=== PATIENT | male | born 1975 | race Caucasian/White ===

== ENCOUNTER → 2017-11-08 14:54 | Outpatient (CLI) | payer OTHER, SELFPAY ==
--- NOTE | 2017-11-08 | DI.MRI.S_ITS ---
PROCEDURE: MR LUMBAR SPINE WO CON INDICATIONS: LUMBAR SPINE PAIN TECHNIQUE: Noncontrast sagittal T1 spin echo and T2 fast echo, sagittal STIR, axial T1 and T2 fast spin echo through the lumbar spine. In cases with scoliosis, additional coronal T2 fast spin echo may be performed. COMPARISON: [facility], CR, L-SPINE 2-3 VIEWS, 07/22/2017, 8:31. [facility] [place], CR, XR LUMBAR SPINE FLEXION EXTENSION, 06/23/2017, 14:25. [facility], MR, MR LUMBAR SPINE WITHOUT CONTRAST, 06/16/2017, 8:00. FINDINGS: Image quality: Excellent. Alignment and Curvature: There is grade 1 retrrolisthesis of L4 over L5. Bone Marrow: Degenerative endplate signal changes in L4, L5 and S1. No acute vertebral body compression fractures. Spinal Cord: Conus medullaris terminates at the L1 level. Visualized cord demonstrates normal signal and size. Paraspinous Soft Tissues: No paravertebral masses. L1-L2: Normal appearance. L2-L3: Normal appearance. L3-L4: Normal appearance. L4-L5: Moderate loss of disc height and disc desiccation. There is diffuse posterior disc bulge and superimposed posterior central disc protrusion with the protruding disc measuring 6 mm anterior-posterior x 16 mm transverse x 9 mm cephalocaudal. There is mild bilateral facet arthropathy. The central canal is mildly narrowed. Moderate right and mild left foraminal stenosis. Compared to the last exam on 06/23/2017, posterior disc extrusion is slightly increased. L5-S1: Moderate loss of disc height and disc desiccation. There is diffuse posterior disc bulge and disc protrusion. There is mild bilateral facet arthropathy. The central canal is patent. Moderate left and mild right foraminal stenosis. Compared to the last exam on 06/23/2017, posterior disc protrusion is minimally changed. IMPRESSION: 1. Degenerative disc and facet disease in lower lumbar spine. 2. Residual or recurrent posterior disc protrusion at L4-L5 causing mild central canal stenosis. 3. Residual or recurrent posterior disc protrusion at L5-S1. No central canal stenosis. 4. Foraminal stenoses at L4-L5 and L5-S1 as described. Dictated by: Antonia Thomas M.D. on 11/08/2017 at 16:38 Approved by: Antonia Thomas M.D. on 11/08/2017 at 16:53
== END ==
PROVIDERS: Family Provider Radiology Diagnostic Radiology; PCP Radiology Diagnostic Radiology; Visit Provider Physician Assistant Surgical
DX: M51.36 Other intervertebral disc degeneration, lumbar region (principal); M48.061 Spinal stenosis, lumbar region without neurogenic claudication
CPT/HCPCS: 72148

== ENCOUNTER 2018-01-05 05:57 | Inpatient (IN) | payer OTHER, SELFPAY ==
[2017-12-14 09:59] VITALS: BMI 26.2
[2018-01-05] VITALS (18 sets, daily range): BP systolic 107–146; BP diastolic 69–97; PULSE 73–126; RESP 13–20; TEMP 36.1–36.9; O2SAT 92–99; BMI 26.5
[2018-01-05] MEDS: LACTATED RINGERS 1,000 ML 42 ML IV ×2 (07:17→11:17)
--- NOTE | 2018-01-05 07:59 | PM.PREOP ---
Pre-operative Note Interval Note Pre-op Check: Yes History & Physical Reviewed by Physician, Yes Exam Performed and Yes History & Physical exam performed today by Physician Changes: No
[2018-01-05] MEDS: CEFAZOLIN 2 GM/100 ML FROZ.PIGGY IV ×2 (08:07→18:07)
--- NOTE | 2018-01-05 09:04 | SUR.OPER ---
Prone on spine table, head in foam head support, padded chest and pelvic supports, gel pad at knees, lower legs supported by pillows; nipples, genitalia and toes free of pressure, arms secured on foam padded arm boards at <90 degrees abduction. Tape over blanket at thigh secured to table.
[2018-01-05] MEDS: BUPIVACAINE 0.25% W/ EPI VIAL 30 ML INJ (09:28)
[2018-01-05] MEDS: BUPIVACAINE LIPOSOME 266 MG/20 ML VIAL INJ (09:29)
[2018-01-05] MEDS: ACETAMINOPHEN IV 1,000 MG/100 ML VIAL 400 MG IV (10:26)
--- NOTE | 2018-01-05 11:14 | P.OP_ITS ---
Operative Date/Time/Diagnoses Date of procedure: 01/05/18 Time of procedure: 08:10 Pre-op diagnosis: 1. L4-5 hx of microdiscectomy with scarring 2. L4-5, L5-S1 spinal stenosis. 3. L4-5, L5-S1 spondylosis with radiculopathy Post-op diagnosis: same Procedure & Clinicians Procedure: 1. L4-5, L5-S1 Postero-lateral and posterior interbody fusion 2. L4-5, L5-S1 interbody cage placement. 3. L4-5, L5-S1 decompressive laminectomy with bilateral facetecomies 4. L4-5, L5-S1 Posterior segmental instrumentation 5. Paoli of bone marrow from iliac crest 6. Utilization of microsurgical technique and operating microscope Same procedure as scheduled: Yes Indications: Patient has been having chronic back pain and worsening lumbar radiculopathy. Patient failed multiple conservative management with worsening pain weakness and numbness in her lower extremity. Patient has been having difficulty performing activity of daily living. After discussing risks benefits of treatment options, patient elected proceed with surgery. Surgeon: Patricia Sy Senior Business Architect: Ida Myers Click Yes if Unassisted: No Anesthesia Type: General and Local Operative Notes Closure Type: primary Specimen(s): none sent Implants & Drains: Globus revolve screws, Rise cages Applied: catheter Estimated Blood Loss (mL): 100 Blood products transfused: none Procedure in detail: Patient was seen in the preoperative area. Risks and benefits of the surgery was discussed with the patient. Informed consent was obtained from the patient and placed in the chart. Surgical site was marked. Patient was taken to the operative room. General anesthesia was administered. Prophylactic antibiotic was given to the patient less than 30 min before the incision was made. Patient was placed into a prone position on the Williams table. Patient's back was then prepped and draped in the sterile fashion. Time- out was performed at this time. Using AP and lateral C-arm imaging the interval between L4-S1 was identified and marked on patient's back. A 2 inch incision 2 in from midline was made on the right side first. The fascia was incised in line with skin incision. Globus MARS retractors was placed inside the incision and docked onto the L4 and L5 lamina. Using microsurgical technique and operating microscope, a L4 and L5 laminectomy and L4-5 L5-S1 facetectomy was performed using a Kerrison rongeur. The disc space at L4-5, L5-S1 was identified. And a total diskectomy was performed at L4-5, L5-S1 level. The endplates were decorticated using a rasp and shaver. The total diskectomy and decortication was performed at L4-5, L5-S1 level in order to to accomplish a L4-5, L5-S1 fusion. The local bone from the laminectomy and facetectomy was saved for local bone grafting. After the total diskectomy and decortication was completed, Globus viacell bone graft material was combined with local bone that was harvested earlier. At this time , a separate skin is incision was made over the iliac crest. A Jamshidi needle was inserted into the iliac crest through a separate skin incision. 5 cc of bone marrow aspiration was obtained through the separate skin incision using a Jamshidi needle from the iliac crest. The bone marrow aspiration was combined with local bone and the via cell bone grafting material. The bone grafting material was placed into the L4-5, L5-S1 interbody space along with two cages, one expandable cage at each level. The cages were expanded to their maximum height using the torque limiting screwdriver. At this time a mirror image incision was made on the left side. The fascia was incised in line with the skin incision. Globus MARS retractor was inserted and docked onto the L4-5, L5-S1 posterolateral gutter. Using the power drill, posterior-lateral decortication was performed at L4-5, L5-S1 level until bleeding cortical bone was identified. The remaining bone grafting material was placed into the L4-5 L5-S1 posterior lateral gutter he order to accomplish posterolateral fusion at the L4-5 L5-S1 levels. Using the double C-arm technique, pedicle screws were placed into the L4, L5, S1 pedicles bilaterally. This was done by placing the Jamshidi needle into the pedicles, then placing the guidewires over the Jamshidi needle, and finally placing the cannulated screws over the guidewires bilaterally. After the pedicle screws were placed, 2 titanium rods was locked into the heads of the pedicle screws using locking caps and torque limiting screwdriver. Total 6 pedicles screws were placed. After all the hardware was placed, and confirmed with AP and lateral C-arm imaging, the wound was then irrigated with sterile normal saline and packed with Ray-Jad gauze for 3 min to accomplish hemostasis. After the gauze was removed the deep fascia was closed with #1 Vicryl suture. The subcutaneous layer was closed with 2-0 Vicryl. The skin was closed with skin gertrude. Patient tolerated the procedure well. There were no complications. Complications: none Condition: stable Disposition: Acute Care Plan for aftercare: Admit to inpatient hospital
[2018-01-05] MEDS: fentaNYL 100 MCG/2 ML INJ 50 MCG IV ×4 (11:25→12:19)
[2018-01-05] MEDS: HYDROMORPHONE 2 MG INJ 0.5 MG IV ×8 (11:35→12:10)
[2018-01-05] MEDS: LORazepam 2 MG/ML SYRINGE 0.25 MG IV ×2 (11:37→11:53)
--- NOTE | 2018-01-05 12:24 | DI.RAD.S_ITS ---
PROCEDURE: XR LUMBAR SPINE 2-3V INDICATIONS: L4-5, L5-S1 TLIF TECHNIQUE: 2 views of the lumbar spine were acquired. COMPARISON: [facility], , L-SPINE 2-3 VIEWS, 07/22/2017, 8:31. FINDINGS: Intraoperative images demonstrating localizer along the posterior aspect of L5. Posterior fusion with intervertebral spacers from L4-S1 is noted. There is questionable trace retrolisthesis of L4 on L5. IMPRESSION: Intraoperative images as above. Dictated by: Keily Guzman M.D. on 01/05/2018 at 12:32 Approved by: Keily Guzman M.D. on 01/05/2018 at 12:33
[2018-01-05] MEDS: SODIUM CHLORIDE 0.9% 1,000 ML 100 ML IV (13:12)
--- NOTE | 2018-01-05 13:15 | CM.IDA ---
Addendum entered by ALEXX Lopez 01/06/18 15:21: Met w/pt this morning. He explained he had a rough night, he did not sleep, and he was eager to get home. Pt's available to assist, father in law also available (lives with them). Pt has two children, a 9 and 13 yo and they can help with some tasks. Pt requests information about a product a friend of his owned; an ice pack w/circulating cold water that makes it so ice does not need to be changed as often. Provided pt w/information on [employer] in [place] (they can deliver). This product costs approx $200-300, there is a rental option, and [employer] w/this ORTHOTICS PROSTHETICS TECHNICIAN stating [employer] would likely not cover this DME. Also attempted [facility] in [place] had to LM. Home w/family is expected upon DC, likely no barriers. ERIN Original Note: DCP Assessment Note: Pt is a 42 yo male, resident of [place]. Pt admitted for spinal surgery with Dr Sy. Pt's PCP is James Randle; Insurance is [employer]. Attempted DCP Assessment and pt had not returned to the floor from the OR . Following closely. ALEXX Lopez Discharge Planning/Care Management CM Discharge Assessment Start: 01/05/18 13:07 Freq: Status: Active Protocol: Document 01/05/18 13:09 ERIN (Rec: 01/05/18 13:15 ERIN [id number]) Discharge Planning Assessment Assigned Maintenance Advisor ALEXX Sam DPOA/Assigned Designee Name shasta Mcnulty Contact Information [phone] Advance Directives? Yes Advance Directives on File No Prior Living Arrangements House Household Members spouse children Type of transporation used prior to Drives own vehicle admit Independent with ADL's Yes Is patient alert and oriented? Yes Barriers to Discharge No Comment Likely not but will require DCP assessment when on the floor Discharge Plan Home Transportation Arrangement Family Referrals Initiated None needed Additional Comment Awaiting pt's return to floor from OR Whiteboard Updated in Patient Room with Yes name and ext. # of Maintenance Advisor Review Status In Process
[2018-01-05] MEDS: MAG HYDROX/ALUM/SIMETH 30 ML UDC PO (14:54)
--- NOTE | 2018-01-05 15:30 | PT.IIE ---
Current Diagnoses Spinal stenosis, lumbar region without neurogenic claudication (01/05/18) Intervertebral disc disorders with radiculopathy, lumbar region (01/05/18) Other specified postprocedural states (01/05/18) Surgery Performed Operation Date: 01/05/18 07:45 Actual Procedures p L4-5,L5-S1 TLIF with Posterior Instrumentation - Patricia Sy MD Surgical History (Last Updated 12/14/17 @ 10:24 by Denise Dietz RN) History of appendectomy (Acute ~2000) History of lumbar laminectomy (Acute) Medical History (Last Updated 12/12/17 @ 09:53 by Cindy Dsouza RN) Allergic rhinitis (Acute) Ankle pain (Acute) Astigmatism (Acute) Bursitis (Acute) Degeneration of lumbar intervertebral disc (Acute) Diplopia (Acute) Gastroenteritis (Acute) Hamstring sprain (Acute) Hip pain (Acute) History of pneumonia (Acute) Hyperglycemia (Acute) Hyperlipoproteinemia (Acute) Left knee pain (Acute) Low back pain (Acute) Lumbar disc herniation with radiculopathy (Acute) Myopia (Acute) Paronychia (Acute) Spasm of accommodation (Acute) Spinal stenosis of lumbar region at multiple levels (Acute) [place] teeth extracted (Acute) Physical Therapy Inpatient Evaluation/Re-Eval M1 PT/OT-IP Prior Functional Status Start: 01/05/18 16:05 Freq: Status: Active Protocol: Document 01/05/18 15:30 RCC (Rec: 01/05/18 16:12 RCC [email or web address]) Medical Review Prior Functional Status Medical History Reviewed Yes Diet/Fluid Consistency Regular Communication WNL Mobility and Gait indep. community ambulator without device Social History Household Members spouse children Living Arrangements House Number of Floors (Floors) Two Floors Number of Stairs To Enter/Railing? 2 SE no rails, can stay on main level Home Environment Walk in Shower M2 PT-IP Current Condition Start: 01/05/18 16:05 Freq: Status: Active Protocol: Document 01/05/18 15:30 RCC (Rec: 01/05/18 16:12 RCC [email or web address]) Physical Therapy Current Condition Current Condition Evaluation Date 01/05/18 Treatment Diagnosis L4-S1 lami/fusion, impaired mobility Onset Date 01/05/18 Precautions Lumbar Precautions Log Roll No Twisting Limit Bending Lifting Restriction of 10 lbs Gait Belt above Incisional Area M3 PT-IP Subjective Start: 01/05/18 16:05 Freq: Status: Active Protocol: Document 01/05/18 15:30 RCC (Rec: 01/05/18 16:12 RCC [email or web address]) Subjective Physical Therapy Visit Type Type Initial Evaluation Visit Start Time 14:55 Visit Stop Time 15:30 Total Visit Minutes 35 Number of BURRING WHEEL OPERATOR Visits 0 Physical Therapy Visit Comments Patient Comments pt willing to get OOB. Patient Goals walk, go home Therapy Pain Assessment Pain Present Pain Present Pain Reported Location Lower Back Intensity 6 Scale Used Numeric (1 - 10) M4 PT-IP Mobility and Gait Start: 01/05/18 16:05 Freq: Status: Active Protocol: Document 01/05/18 15:30 RCC (Rec: 01/05/18 16:12 RCC [email or web address]) PT-Bed Mobility Assessment Rolling Type of Rolling Log Rolling Level of Assist Moderate Assistance 1 Person Assistance Supine to Sit Supine to Sit Moderate Assistance 1 Person Assistance Sit to Supine Sit to Supine Moderate Assistance 1 Person Assistance Scooting Scooting to Edge of Bed Contact Guard Assistance PT-Transfer Assessment Sit to and From Stand Sit to and from Stand Contact Guard Assistance 1 Person Assistance Use of Upper Extremities Equipment Transfer Assistive Device Gait Belt Front Wheeled Walker Transfers Transfer Destination Bed Transfer Technique Stand Step Pivot Transfer Ability Level of Assist Contact Guard Assistance Comments Mobility Comments RLE ER and decreased foot clearance Gait Assessment Gait Gait Assistance Required: Contact Guard Assist Distance (Feet) 15 Assistive Devices Assistive Device Gait Belt Front Wheeled Walker Gait Deviations General Gait Pattern Antalgic Decreased Stride Length Decreased Feet Clearance Wide Based Gait Factors Limiting Gait Function Factors Limiting Gait Function Decreased Activity Tolerance Decreased Strength Pain PT-Balance Assessment Sitting Balance and Reactions Static Sitting Balance Ability Good Dynamic Sitting Balance Ability Good Standing Balance and Reactions Static Standing Balance Ability Fair Dynamic Standing Balance Ability Fair Device Used FWW M5 PT-IP Objective Assessments Start: 01/05/18 16:05 Freq: Status: Active Protocol: Document 01/05/18 15:30 RCC (Rec: 01/05/18 16:12 RCC [email or web address]) Orientation Orientation/Cognition Level of Alertness Alert Orientation Name Age Birthday Month Date Year Day of Week Place Situation Gross Range of Motion Lower Extremity ROM Assessment Within Functional Limits Strength Comments Strength Comments LE strength not tested but grossly at least 3+/5 Sensation Assessment Sensation Gross Sensation WNL M6 PT-IP Treatment Start: 01/05/18 16:05 Freq: Status: Active Protocol: Document 01/05/18 15:30 RCC (Rec: 01/05/18 16:12 RCC [email or web address]) Physical Therapy Treatment Education Education Provided Precautions Post-Op Packet Safety Other Treatments Other Treatment Performed BP 145/97 after treatment M7 PT-IP Assessment and Plan Start: 01/05/18 16:05 Freq: Status: Active Protocol: Document 01/05/18 15:30 RCC (Rec: 01/05/18 16:12 RCC [email or web address]) PT Summary Assessment and Plan Potential Rehabilitation Potential Good Status of Condition at Evaluation Stable Summary Impairments Pain Strength Bed Mobility Transfers Gait Activity Tolerance Assessment Summary Same day post-op, pt with less pain after mobility compared to before. His pain is most limiting factor at this point. Expect that if pt is able to have improved pain control, he likely will be able to d/c home when medically stable. Likely will need FWW upon d/c. can support him part of day, but they do have kids to take care of as well. Goals Bed Mobility Goal Independent Transfer Goal Independent Gait Goal Independent Gait Distance 150 Other Goals up/down 2 steps no rails and CGA Days to Meet Goals 2 Frequency of Treatment Frequency Of Treatment Twice a Day Treatment Plan Physical Therapy Treatment Plan Bed Mobility Training Transfer Training Gait Training Therapeutic Exercise Post Op Education Hot or Cold Pack Neuromuscular Re-ed Recommendations To Nursing Amount of Assist Needed 1 Person Assist Discharge Recommendations PT Discharge Recommendations Home with Assistance Equipment Needed for Home Before FWW Discharge
[2018-01-05] MEDS: ACETAMINOPHEN 325 MG TABLET 650 MG PO (19:37)
[2018-01-05] MEDS: OXYCODONE IR 5 MG TABLET 10 MG PO ×2 (19:39→22:54)
[2018-01-05] MEDS: HYDROMORPHONE 1 MG INJ 0.5 MG IV (20:35)
--- NOTE | 2018-01-05 23:54 | PC.NURSE ---
SHIFT NOTE Received pt sleeping but verbally arousable. per report from previous shift, pt would frequently fall asleep and desat despite o2 via NC. pt on verbal agreement to have pain medications withheld until he is more awake and o2 saturations WNL while sleeping (per pt's , pt has possible undiagnosed LESLY). RT at bedside to assist with IS exercises. back dressing 80-90% saturated with bloody drainage, notified Dr. Sy's PA who was in the surgical unit with him, bleeding was expected and to reinforce dressing at this time. Nursing staff to call on-call MD if bleeding persists. best intact, pt tolerating regular consistency food. pt's more awake/alert and much better saturations later in the shift but pt states 9-10/10 pain to back area despite ice packs and frequent repositioning. Administered PRN tylenol and oxycodone which pt states ineffective. Administered PRN IV dilaudid which pt states was ineffective as well. pt agreeable to be on Q3H PO pain medication schedule. academic hospitalist RN updated on plan. call light within reach.
[2018-01-06] VITALS (7 sets, daily range): BP systolic 113–124; BP diastolic 70–99; PULSE 62–83; RESP 16–18; TEMP 36.3–36.8; O2SAT 94–99
[2018-01-06] MEDS: SODIUM CHLORIDE 0.9% 1,000 ML 100 ML IV (00:42)
--- NOTE | 2018-01-06 01:06 | PC.NURSE ---
Addendum entered by Amparo Oshea R.N. 01/06/18 06:13: Sats dropping down to 87% without oxygen on so restarted at 0.5L/min and now sat at 98% Original Note: Addendum entered by Amparo Oshea R.N. 01/06/18 06:06: States pain is hanging out at same 5/10 level and just feels more groggy after taking the Valium. Declined offer of any other pain med at this time. Lab here to draw blood. O2 removed and will continue to monitor for any decline in O2 sat Original Note: Addendum entered by Amparo Oshea R.N. 01/06/18 05:55: O2 sats have been staying in mid to upper 90's on 1L oxygen so decreased to 0.5L/min and will continue to monitor on continuous oximetry. Medicated at 0527 with Valium. Continues to decline repositioning due to pain. Original Note: Addendum entered by Amparo Oshea R.N. 01/06/18 05:09: States pain is better, but still rates severity as 5/10; requests repeat on Valium was he is able to have it again. Original Note: Addendum entered by Amparo Oshea R.N. 01/06/18 04:03: States he was able to get some sleep and pain is still hurts, but it's better than before. Rates current severity as 5/10. Medicated with Oxycodone ordered for 7-10 pain because has no pain meds ordered for 5/10 pain and was previously receiving Oxycodone. Original Note: Patient is alert and oriented with flat affect likely related to uncontrolled pain. Breath sounds CTA with sat of 99% on 1.5L/min oxygen so decreased O2 to 1L/min and will continue to monitor on continuous oximetry. HRR. Denies nausea. BT present and is passing flatus. Indwelling catheter is patent with clear yellow urine noted. Dressing to back reinforced on evenings and now with sanguinous drainage showing but no leakage; outlined for monitoring. Is able to turn self in bed but prefers to be on back as is less painful. Despite pain medications, patient continues to state pain is uncontrolled at 9/[address] Sy contacted and new pain meds ordered. CMS intact. Wearing bilateral footie SCD's. Fall risk score is medium; bed alarm is currently activated.
[2018-01-06] MEDS: OXYCODONE ER 10 MG TAB PO ×3 (01:20→20:21)
[2018-01-06] MEDS: HYDROMORPHONE 1 MG INJ 0.5 MG IV (01:20)
[2018-01-06] MEDS: diazePAM 5 MG TABLET PO ×5 (01:20→22:40)
[2018-01-06] MEDS: CEFAZOLIN 2 GM/100 ML FROZ.PIGGY IV (02:13)
[2018-01-06] MEDS: OXYCODONE IR 5 MG TABLET 10 MG PO ×6 (04:00→21:56)
[2018-01-06 06:49] LABS: Hematocrit 37.2 % (41-53); Hemoglobin 12.8 g/dL (13.5-17.5)
[2018-01-06] MEDS: MAG HYDROX/ALUM/SIMETH 30 ML UDC PO (07:51)
[2018-01-06] MEDS: DOCUSATE 100 MG CAPSULE PO ×2 (07:53→20:21)
[2018-01-06] MEDS: ACETAMINOPHEN 325 MG TABLET 650 MG PO ×2 (07:53→15:43)
--- NOTE | 2018-01-06 08:44 | P.PN_ITS ---
Subjective Date Patient Seen: 01/06/18 Time Patient Seen: 08:40 Interval history: Patient is postop day 1 status post lumbar fusion by Dr. Sy. Patient was having a lot of pain last and could not get comfortable. OxyContin 10 mg p.o. b.i.d. was ordered. He is also receiving oxycodone 10 mg q.3h as needed and Dilaudid 0.5mg Q2HR prn which he received this morning. Pain is now about 5/10 versus 9/10 last night. Eating and drinking well. No complaints of chest pain or shortness of breath. No complaints of any numbness or tingling down leg. Exam Vital Signs (past 8 hours): - 01/06/18 05:10 01/06/18 08:11 Temperature 97.8 F 97.7 F Pulse Rate 75 80 Respiratory Rate 17 16 Blood Pressure 124/81 113/78 Pulse Oximetry 99 99 Fraction of Inspired Oxygen 26 Oxygen Delivery Method Room Air Oxygen Flow Rate 2 Narrative Exam Narrative: Patient in bed. Alert and orient x3. Morrison in. Back dressing has been reinforce with an ABD but has soaked through on one side with blood. 5 /5 BLE strength. Neurovascular status intact. Objective Labs Result Diagrams: 01/06/18 06:05 Labs: Laboratory Results - last 24 hr 01/06/18 06:05 Hgb 12.8 L Hct 37.2 L Assessment & Plan Post-op Postoperative Procedures Operation Date: 01/05/18 07:45 Actual Procedures Side Surgeon p L4-5,L5-S1 TLIF with Posterior Instrumentation Patricia Sy MD Postop day 1. Steroids ordered to help with pain control. The patient ambulate with physical therapy today. MAYE Morrison 1 more mobile. Continue current pain medication. Possible discharge home in a couple of days.
[2018-01-06] MEDS: DEXAMETHASONE 10 MG/ML VIAL IV (10:00)
--- NOTE | 2018-01-06 10:55 | PT.IPTN ---
Current Diagnoses Spinal stenosis, lumbar region without neurogenic claudication (01/05/18) Intervertebral disc disorders with radiculopathy, lumbar region (01/05/18) Other specified postprocedural states (01/05/18) Surgery Performed Operation Date: 01/05/18 07:45 Actual Procedures p L4-5,L5-S1 TLIF with Posterior Instrumentation - Patricia Sy MD Physical Therapy Treatment Note M2 PT-IP Current Condition Start: 01/05/18 16:05 Freq: Status: Active Protocol: Document 01/05/18 15:30 [facility] (Rec: 01/05/18 16:12 [facility] [email or web address]) Physical Therapy Current Condition Current Condition Evaluation Date 01/05/18 Treatment Diagnosis L4-S1 lami/fusion, impaired mobility Onset Date 01/05/18 Precautions Lumbar Precautions Log Roll No Twisting Limit Bending Lifting Restriction of 10 lbs Gait Belt above Incisional Area M3 PT-IP Subjective Start: 01/05/18 16:05 Freq: Status: Active Protocol: Document 01/06/18 10:55 GGD (Rec: 01/06/18 12:22 GGD [id number]) Subjective Physical Therapy Visit Type Type Treatment Note Visit Start Time 10:25 Visit Stop Time 10:55 Total Visit Minutes 30 Number of FISH HATCHERY ASSISTANT Visits 1 Physical Therapy Visit Comments Patient Comments Pt wants to get up and move. Therapy Pain Assessment Pain When Pain Assessed At Rest Pain Present Pain Present Pain Reported Location Lower Back Intensity 3 Scale Used Numeric (1 - 10) M4 PT-IP Mobility and Gait Start: 01/05/18 16:05 Freq: Status: Active Protocol: Document 01/06/18 10:55 GGD (Rec: 01/06/18 12:22 GGD [id number]) PT-Bed Mobility Assessment Rolling Type of Rolling Log Rolling Level of Assist Contact Guard Assistance 1 Person Assistance Supine to Sit Supine to Sit Minimal Assistance 1 Person Assistance Bedrails Sit to Supine Sit to Supine Contact Guard Assistance 1 Person Assistance Bedrails Scooting Scooting to Edge of Bed Standby Assistance PT-Transfer Assessment Sit to and From Stand Sit to and from Stand Contact Guard Assistance 1 Person Assistance Use of Upper Extremities Equipment Transfer Assistive Device Gait Belt Front Wheeled Walker Transfers Transfer Destination Bed Gait Assessment Gait Gait Assistance Required: Contact Guard Assist Distance (Feet) 120 Assistive Devices Assistive Device Gait Belt Front Wheeled Walker Gait Deviations General Gait Pattern Antalgic Decreased Stride Length Decreased Feet Clearance Wide Based Gait Factors Limiting Gait Function Factors Limiting Gait Function Decreased Activity Tolerance Decreased Strength Pain Stair Climbing Assessment Evaluation Level of Assist On Stairs Contact Guard Assistance Minimal Assistance Devices Stair Climbing Assistive Devices Front Wheel Walker Technique/Endurance Stair Climbing Direction Ascend and Descend Stair Climbing Technique Step to Step Number of Steps Climbed 1 Query Text: Stair Climbing Set # Repetitions (reps) 1 Comments Stair Climbing Comments Ascend forward, descend backwards, Pt unable hip hinge to reach walker for forward descend. M5 PT-IP Objective Assessments Start: 01/05/18 16:05 Freq: Status: Active Protocol: Document 01/05/18 15:30 [facility] (Rec: 01/05/18 16:12 [facility] [email or web address]) Orientation Orientation/Cognition Level of Alertness Alert Orientation Name Age Birthday Month Date Year Day of Week Place Situation Gross Range of Motion Lower Extremity ROM Assessment Within Functional Limits Strength Comments Strength Comments LE strength not tested but grossly at least 3+/5 Sensation Assessment Sensation Gross Sensation WNL M6 PT-IP Treatment Start: 01/05/18 16:05 Freq: Status: Active Protocol: Document 01/06/18 10:55 GGD (Rec: 01/06/18 12:22 GGD [id number]) Physical Therapy Treatment Education Education Provided Precautions Safety M7 PT-IP Assessment and Plan Start: 01/05/18 16:05 Freq: Status: Active Protocol: Document 01/06/18 10:55 GGD (Rec: 01/06/18 12:22 GGD [id number]) PT Summary Assessment and Plan Summary Assessment Summary Pt improving with mobility, but having pain with all activity. He has increase in shoulder gaurding and heavy use of UE with gait. He not able to hip hinge for good sit <> stand and stair mobility techinque. Frequency of Treatment Frequency Of Treatment Twice a Day Treatment Plan Physical Therapy Treatment Plan Bed Mobility Training Transfer Training Gait Training Therapeutic Exercise Post Op Education Hot or Cold Pack Neuromuscular Re-ed Recommendations To Nursing Amount of Assist Needed 1 Person Assist Discharge Recommendations PT Discharge Recommendations Home with Assistance
[2018-01-06] MEDS: DEXAMETHASONE 4 MG/ML VIAL IV ×2 (13:24→19:05)
--- NOTE | 2018-01-06 14:51 | OT.IP.EVAL ---
Current Diagnoses Spinal stenosis, lumbar region without neurogenic claudication (01/05/18) Intervertebral disc disorders with radiculopathy, lumbar region (01/05/18) Other specified postprocedural states (01/05/18) Surgery Performed Operation Date: 01/05/18 07:45 Actual Procedures p L4-5,L5-S1 TLIF with Posterior Instrumentation - Patricia Sy MD Past Medical History (Last Updated 12/12/17 @ 09:53 by Cindy Dsouza RN) Allergic rhinitis (Acute) Ankle pain (Acute) Astigmatism (Acute) Bursitis (Acute) Degeneration of lumbar intervertebral disc (Acute) Diplopia (Acute) Gastroenteritis (Acute) Hamstring sprain (Acute) Hip pain (Acute) History of pneumonia (Acute) Hyperglycemia (Acute) Hyperlipoproteinemia (Acute) Left knee pain (Acute) Low back pain (Acute) Lumbar disc herniation with radiculopathy (Acute) Myopia (Acute) Paronychia (Acute) Spasm of accommodation (Acute) Spinal stenosis of lumbar region at multiple levels (Acute) [place] teeth extracted (Acute) Surgical History (Last Updated 12/14/17 @ 10:24 by Denise Dietz RN) History of appendectomy (Acute ~2000) History of lumbar laminectomy (Acute) Occupational Therapy Inpatient Evaluation/Re-Eval M1 PT/OT-IP Prior Functional Status Start: 01/05/18 16:05 Freq: Status: Active Protocol: Document 01/05/18 15:30 [facility] (Rec: 01/05/18 16:12 [facility] [email or web address]) Medical Review Prior Functional Status Medical History Reviewed Yes Diet/Fluid Consistency Regular Communication WNL Mobility and Gait indep. community ambulator without device Social History Household Members spouse children Living Arrangements House Number of Floors (Floors) Two Floors Number of Stairs To Enter/Railing? 2 SE no rails, can stay on main level Home Environment Walk in Shower M1 PT/OT-IP Prior Functional Status Start: 01/06/18 14:34 Freq: NEEDED Status: Active Protocol: Document 01/06/18 14:00 [facility] (Rec: 01/06/18 14:51 [facility] [id number]) Medical Review Prior Functional Status Medical History Reviewed Yes Diet/Fluid Consistency Regular Communication WNL Mobility and Gait indep. community ambulator without device Social History Household Members spouse children Living Arrangements House Number of Floors (Floors) Two Floors Number of Stairs To Enter/Railing? 2 SE no rails, can stay on main level Home Environment Walk in Shower M2 OT-IP Current Condition Start: 01/06/18 14:34 Freq: Status: Active Protocol: Document 01/06/18 14:00 [facility] (Rec: 01/06/18 14:51 [facility] [id number]) Occupational Therapy Current Condition Current Condition Evaluation Date 01/06/18 Treatment Diagnosis Spinal stenosis Diagnosis Onset Date 01/05/18 Post Operative Precautions Lumbar Precautions Log Roll No Twisting Limit Bending Lifting Restriction of 10 lbs Gait Belt above Incisional Area M3 OT- IP Subjective and Pain Start: 01/06/18 14:34 Freq: Status: Active Protocol: Document 01/06/18 14:00 [facility] (Rec: 01/06/18 14:51 [facility] [id number]) OT- Subjective Occupational Therapy Visit Type Type Initial Evaluation Visit Start Time 13:38 Visit Stop Time 14:01 Total Visit Minutes 23 Occupational Therapy Visit Comments Patient Comments Pt agreeable to get up for Ot eval. OT Pain Assessment Pain When Pain Assessed At Rest Pain Present Pain Present Denied Pain M4 OT- IP ADL's Start: 01/06/18 14:34 Freq: Status: Active Protocol: Document 01/06/18 14:00 [facility] (Rec: 01/06/18 14:51 [facility] [id number]) OT ADL-Dressing General Eval Lower Body Dressing Ability Standby Assistance Areas Needing Assistance Retrieving/Set-up of Clothing Comments OT Dressing Comments Pt able to emmett/doff socks by crossing legs over comfortable and prefers that over using sock aid. Pt issued long handled sponge and field spec. OT ADL-Toileting Comments OT Toileting Comments Pt states has to sit to urinate and to take urinal home as gets up occasionally. OT ADL-Bathing Comments OT Bathing Comments Pt states shower too small for shower chair and prefers to stand and that to assist. Pt states will just shower at home. M6 OT- IP Functional Cognition Start: 01/06/18 14:34 Freq: Status: Active Protocol: Document 01/06/18 14:00 [facility] (Rec: 01/06/18 14:51 [facility] [id number]) Cognitive Factors Limiting Selfcare Function Cognitive Ability Level of Alertness Alert Patient Orientation Name Age Birthday Month Date Year Day of Week Place Situation Attention Span Ability Capable of Focused Attention Capable of Sustained Attention Ability to Follow Commands Able to Follow Multi-Step Commands Memory Description No Deficits Noted Safety Awareness Underestimates Need for Assistance Cognitive Comments Cognitive Assessment Comments Pt doing well and able to incorporate back precautions for needs. VC to reach back before sitting. Pt able do show good safety to sit down with good balance on BUE on FWW. OT- Vision and Hearing OT- Hearing Assessment OT- Hearing Assessment WFL M7 OT- IP Mobility and Balance Start: 01/06/18 14:34 Freq: Status: Active Protocol: Document 01/06/18 14:00 [facility] (Rec: 01/06/18 14:51 [facility] [id number]) OT- Bed Mobility Assessment Rolling Type of Rolling Roll to Right Level of Assistance Standby Assistance Bedrails Supine to Sit Supine to Sit Assist Standby Assistance Bedrails Sit to Supine Sit to Supine Assist Standby Assistance Bedrails OT-Transfer Assessment Sit to and From Stand Sit to and from Stand Standby Assistance Transfers Transfer Ability Standby Assistance Technique Transfer Destination Bed Transfer Technique Stand Step Pivot Devices Transfer Assistive Devices Gait Belt Front Wheeled Walker Comments Mobility Comments SBA OT- Balance Assessment Sitting Balance and Reactions Static Sitting Balance Ability Normal Dynamic Sitting Balance Ability Normal Standing Balance and Reactions Static Standing Balance Ability Good Dynamic Standing Balance Ability Fair M8 OT- IP Objective Assessments Start: 01/06/18 14:34 Freq: Status: Active Protocol: Document 01/06/18 14:00 [facility] (Rec: 01/06/18 14:51 [facility] [id number]) OT Gross Range of Motion Upper Extremity Range of Motion Assessment Within Functional Limits OT Strength Upper Extremity Strength Assessment Within Functional Limits OT-Muscle Tone Assessment Muscle Tone WNL Yes M9 OT- IP Assessment and Plan Start: 01/06/18 14:34 Freq: Status: Active Protocol: Document 01/06/18 14:00 [facility] (Rec: 01/06/18 14:51 [facility] [id number]) OT Summary Assessment and Plan Potential Rehabilitation Potential Excellent Analytic Complexity at Evaluation Low Summary OT Impairments Pain Balance Toileting Bathing Progress Towards Goals Progressing Toward Goals Assessment Summary Pt low complexity and main barrier is steps and has supportive at home to assist for needs. Pt looking to go home tomorrow when medically stable. Goals Dressing Goal Independent Toileting Goal Independent Bathing Goal Standby Assistance Toilet Transfer Goal Independent Shower Transfer Goal Independent Days to Meet Goals 1 Frequency of Treatment Frequency Of Treatment Once a Day Treatment Plan OT Treatment Plan Functional Mobility Patient/Family Education Discharge Planning Other Treatment Recommendations and Next Family training. Treatment Focus Discharge Recommendations OT Discharge Recommendations Home with Assistance Home Equipment Needs FWW, shower chair
--- NOTE | 2018-01-06 16:04 | PT.IPTN ---
Current Diagnoses Spinal stenosis, lumbar region without neurogenic claudication (01/05/18) Intervertebral disc disorders with radiculopathy, lumbar region (01/05/18) Other specified postprocedural states (01/05/18) Surgery Performed Operation Date: 01/05/18 07:45 Actual Procedures p L4-5,L5-S1 TLIF with Posterior Instrumentation - Patricia Sy MD Physical Therapy Treatment Note M2 PT-IP Current Condition Start: 01/05/18 16:05 Freq: Status: Active Protocol: Document 01/05/18 15:30 [facility] (Rec: 01/05/18 16:12 [facility] [email or web address]) Physical Therapy Current Condition Current Condition Evaluation Date 01/05/18 Treatment Diagnosis L4-S1 lami/fusion, impaired mobility Onset Date 01/05/18 Precautions Lumbar Precautions Log Roll No Twisting Limit Bending Lifting Restriction of 10 lbs Gait Belt above Incisional Area M3 PT-IP Subjective Start: 01/05/18 16:05 Freq: Status: Active Protocol: Document 01/06/18 14:30 GGD (Rec: 01/06/18 16:04 GGD [email or web address]) Subjective Physical Therapy Visit Type Type Treatment Note Visit Start Time 14:00 Visit Stop Time 14:30 Total Visit Minutes 30 Number of BEVELING MACHINE OPERATOR Visits 2 Physical Therapy Visit Comments Patient Comments Pt would like to walk. Therapy Pain Assessment Pain When Pain Assessed At Rest Pain Present Pain Present Pain Reported Location Lower Back Intensity 5 Scale Used Numeric (1 - 10) M4 PT-IP Mobility and Gait Start: 01/05/18 16:05 Freq: Status: Active Protocol: Document 01/06/18 14:30 GGD (Rec: 01/06/18 16:04 GGD [email or web address]) PT-Bed Mobility Assessment Rolling Type of Rolling Log Rolling Level of Assist Contact Guard Assistance 1 Person Assistance Supine to Sit Supine to Sit Contact Guard Assistance Bedrails Sit to Supine Sit to Supine Contact Guard Assistance Bedrails Scooting Scooting to Edge of Bed Standby Assistance PT-Transfer Assessment Sit to and From Stand Sit to and from Stand Contact Guard Assistance 1 Person Assistance Use of Upper Extremities Equipment Transfer Assistive Device Gait Belt Front Wheeled Walker Transfers Transfer Destination Bed Gait Assessment Gait Gait Assistance Required: Contact Guard Assist Distance (Feet) 220 Assistive Devices Assistive Device Gait Belt Front Wheeled Walker Gait Deviations General Gait Pattern Antalgic Decreased Stride Length Decreased Feet Clearance Wide Based Gait Factors Limiting Gait Function Factors Limiting Gait Function Decreased Activity Tolerance Decreased Strength Pain M5 PT-IP Objective Assessments Start: 01/05/18 16:05 Freq: Status: Active Protocol: Document 01/05/18 15:30 [facility] (Rec: 01/05/18 16:12 [facility] [email or web address]) Orientation Orientation/Cognition Level of Alertness Alert Orientation Name Age Birthday Month Date Year Day of Week Place Situation Gross Range of Motion Lower Extremity ROM Assessment Within Functional Limits Strength Comments Strength Comments LE strength not tested but grossly at least 3+/5 Sensation Assessment Sensation Gross Sensation WNL M6 PT-IP Treatment Start: 01/05/18 16:05 Freq: Status: Active Protocol: Document 01/06/18 14:30 GGD (Rec: 01/06/18 16:04 GGD [email or web address]) Physical Therapy Treatment Education Education Provided Precautions Safety M7 PT-IP Assessment and Plan Start: 01/05/18 16:05 Freq: Status: Active Protocol: Document 01/06/18 14:30 GGD (Rec: 01/06/18 16:04 GGD [email or web address]) PT Summary Assessment and Plan Summary Assessment Summary Pt improving with bed mobility . He need less assist. He has heavy use of UE with gait and sit <> stand on FWW. He slightly improved hip hinge for sit to stand. Frequency of Treatment Frequency Of Treatment Twice a Day Treatment Plan Physical Therapy Treatment Plan Bed Mobility Training Transfer Training Gait Training Therapeutic Exercise Post Op Education Hot or Cold Pack Neuromuscular Re-ed Recommendations To Nursing Amount of Assist Needed 1 Person Assist Discharge Recommendations PT Discharge Recommendations Home with Assistance
[2018-01-06] MEDS: SENNOSIDES 8.6 MG TABLET 17.2 MG PO (20:20)
[2018-01-06] MEDS: SODIUM CHLORIDE 0.9% FLUSH 10 ML IV (20:22)
[2018-01-06] MEDS: CALCIUM CARBONATE 500 MG TAB PO (21:55)
[2018-01-07 00:15] VITALS: BP 110/68; PULSE 71; RESP 15; TEMP 36.6; O2SAT 95
[2018-01-07] MEDS: DEXAMETHASONE 4 MG/ML VIAL IV (00:43)
[2018-01-07] MEDS: OXYCODONE IR 5 MG TABLET 10 MG PO ×4 (00:59→10:25)
--- NOTE | 2018-01-07 02:47 | PC.NURSE ---
Addendum entered by Stephanie Benavides 01/07/18 03:22: pt reports no tingling or numbness in limbs. checked on pt to reassess pain. Pt was wake and anticipating pain medication. Pt states his pain is steady at a 4-5/10 but does feel better with the pain medication. Give pt Valium as ordered. Original Note: Asp Net C Developer S.N. pt is alert and oreinted x's 3. Assessed pt's heart and lung sounds as well as dressing, pedal pulses and CMS. Heart rate normal. Lung sounds were clear. Dressing on back was clean, dry, and showing no signs of leakage. Pt seemed cheerful but states he is in pain, 4/10 on pain scale. Give pt oxycodone as ordered. Went back to reassess pt's pain level but he was sleeping. I allowed pt to sleep.. Pt is a fall risk. Bed alarm is activated.
[2018-01-07] MEDS: diazePAM 5 MG TABLET PO ×2 (03:05→08:29)
[2018-01-07 04:17] VITALS: BP 111/60; PULSE 74; RESP 16; TEMP 36.7; O2SAT 97
[2018-01-07] MEDS: ACETAMINOPHEN 325 MG TABLET 650 MG PO (08:29)
[2018-01-07] MEDS: DOCUSATE 100 MG CAPSULE PO (08:29)
[2018-01-07] MEDS: OXYCODONE ER 10 MG TAB PO (08:29)
[2018-01-07 08:55] VITALS: BP 121/88; PULSE 85; RESP 16; TEMP 36.8; O2SAT 95
--- NOTE | 2018-01-07 09:15 | PT.IPTN ---
Current Diagnoses Spinal stenosis, lumbar region without neurogenic claudication (01/05/18) Intervertebral disc disorders with radiculopathy, lumbar region (01/05/18) Other specified postprocedural states (01/05/18) Surgery Performed Operation Date: 01/05/18 07:45 Actual Procedures p L4-5,L5-S1 TLIF with Posterior Instrumentation - Patricia Sy MD Physical Therapy Treatment Note M2 PT-IP Current Condition Start: 01/05/18 16:05 Freq: Status: Discharge Protocol: Document 01/05/18 15:30 [facility] (Rec: 01/05/18 16:12 [facility] [email or web address]) Physical Therapy Current Condition Current Condition Evaluation Date 01/05/18 Treatment Diagnosis L4-S1 lami/fusion, impaired mobility Onset Date 01/05/18 Precautions Lumbar Precautions Log Roll No Twisting Limit Bending Lifting Restriction of 10 lbs Gait Belt above Incisional Area M3 PT-IP Subjective Start: 01/05/18 16:05 Freq: Status: Discharge Protocol: Document 01/07/18 09:15 GGD (Rec: 01/07/18 12:22 GGD [id number]) Subjective Physical Therapy Visit Type Type Treatment Note Visit Start Time 08:50 Visit Stop Time 09:15 Total Visit Minutes 25 Number of REEL HOOKER Visits 3 Physical Therapy Visit Comments Patient Comments Pt states that he is ready to go home today. Therapy Pain Assessment Pain When Pain Assessed At Rest Pain Present Pain Present Pain Reported Location Lower Back Intensity 4 Scale Used Numeric (1 - 10) M4 PT-IP Mobility and Gait Start: 01/05/18 16:05 Freq: Status: Discharge Protocol: Document 01/07/18 09:15 GGD (Rec: 01/07/18 12:22 GGD [id number]) PT-Bed Mobility Assessment Rolling Type of Rolling Log Rolling Level of Assist Standby Assistance Supine to Sit Supine to Sit Standby Assistance Bedrails Sit to Supine Sit to Supine Standby Assistance Bedrails Scooting Scooting to Edge of Bed Standby Assistance PT-Transfer Assessment Sit to and From Stand Sit to and from Stand Contact Guard Assistance 1 Person Assistance Use of Upper Extremities Equipment Transfer Assistive Device Gait Belt Front Wheeled Walker Transfers Transfer Destination Bed Gait Assessment Gait Gait Assistance Required: Contact Guard Assist Distance (Feet) 250 Assistive Devices Assistive Device Gait Belt Front Wheeled Walker Gait Deviations General Gait Pattern Antalgic Decreased Stride Length Decreased Feet Clearance Wide Based Gait Factors Limiting Gait Function Factors Limiting Gait Function Decreased Activity Tolerance Decreased Strength Pain Stair Climbing Assessment Evaluation Level of Assist On Stairs Standby Assistance Contact Guard Assistance Devices Stair Climbing Assistive Devices Front Wheel Walker Technique/Endurance Stair Climbing Direction Ascend and Descend Stair Climbing Technique Step to Step Number of Steps Climbed 1 Query Text: Stair Climbing Set # Repetitions (reps) 2 Comments Stair Climbing Comments ascend one time forward and backwards. Pt wanted to try backwards. M5 PT-IP Objective Assessments Start: 01/05/18 16:05 Freq: Status: Discharge Protocol: Document 01/05/18 15:30 [facility] (Rec: 01/05/18 16:12 [facility] [email or web address]) Orientation Orientation/Cognition Level of Alertness Alert Orientation Name Age Birthday Month Date Year Day of Week Place Situation Gross Range of Motion Lower Extremity ROM Assessment Within Functional Limits Strength Comments Strength Comments LE strength not tested but grossly at least 3+/5 Sensation Assessment Sensation Gross Sensation WNL M6 PT-IP Treatment Start: 01/05/18 16:05 Freq: Status: Discharge Protocol: Document 01/07/18 09:15 GGD (Rec: 01/07/18 12:22 GGD [id number]) Physical Therapy Treatment Education Education Provided Precautions Safety M7 PT-IP Assessment and Plan Start: 01/05/18 16:05 Freq: Status: Discharge Protocol: Document 01/07/18 09:15 GGD (Rec: 01/07/18 12:22 GGD [id number]) PT Summary Assessment and Plan Summary Assessment Summary Pt improving with mobility and pain control. He improved with stairs. He improved stability with stairs and gait . Frequency of Treatment Frequency Of Treatment Twice a Day Treatment Plan Physical Therapy Treatment Plan Bed Mobility Training Transfer Training Gait Training Therapeutic Exercise Post Op Education Hot or Cold Pack Neuromuscular Re-ed Recommendations To Nursing Amount of Assist Needed 1 Person Assist Discharge Recommendations PT Discharge Recommendations Home with Assistance
--- NOTE | 2018-01-07 09:56 | PM.DS.1 ---
History of Present Illness Date Patient Seen: 01/07/18 Time Patient Seen: 09:57 Chief complaint: [id number] Discharge Providers Date of admission: 01/05/18 05:57 Primary care physician: James Randle Consults: 01/05/18 12:49 Consult to Occupational Therapy Evaluate & Treat Comment: Physician Instructions: Evaluate and treat Consult to Physical Therapy Evaluate & Treat Comment: Physician Instructions: Evaluate and Treat Discharge provider: Trinity Bass PA-C Summary Discharge Diagnosis: 1. L4-5 history of microdiscectomy with scarring 2. L4-5, L5-S1 spinal stenosis 3. L4-5, L5-S1 spondylosis with radiculopathy Hospital Course: Patient was admitted taken operating room where he has a L4 -5, L5-S1 fusion by Dr. Sy. He recovered well as transfer the floor for further care. Postop day 1 patient was having a lot of pain. His pain medication was changed in steroids were ordered for him. Postop day 2 patient was ambulating well, pain under control, eating and drinking well, urinating without difficulty and was ready to be discharged home. Patient will be discharged home with a prescription for oxycodone 15 mg and diazepam 5 mg. He will follow up in office in 10-14 days. A follow precautions for no heavy lifting, bending or twisting. Status at Discharge Cognitive/behavioral status at discharge: Alert and orient x3 Functional status at discharge: uses cane/walker Time Spent with Patient Less than 30 minutes Exam Vital Signs (past 8 hours): - 01/07/18 04:17 01/07/18 08:55 Temperature 98.1 F 98.2 F Pulse Rate 74 85 Respiratory Rate 16 16 Blood Pressure 111/60 121/88 Pulse Oximetry 97 95 Fraction of Inspired Oxygen 26 Oxygen Delivery Method Room Air Oxygen Flow Rate 0 Narrative Exam Narrative: Patient is sitting up in chair. Dressed. Ready to go home. Appears comfortable. Alert orient x3. Back dressing clean dry intact. 5/5 bilateral lower extremity strength. Neurovascular status intact. Objective Labs Result Diagrams: 01/06/18 06:05 Discharge Plan Discharge Plan Patient Disposition: Home Discharge Med Rec/Prescriptions Prescriptions: New walker Misc Qty: 1 RF: 0 acetaminophen 325 mg Tablet 650 mg PO Q6HR PRN (Reason: Pain, Mild (1-3)) Qty: 0 RF: 0 diazepam 5 mg Tablet 5 mg PO Q4H PRN (Reason: Spasms) Qty: 40 RF: 0 oxycodone 15 mg tablet 15 mg PO Q4H PRN (Reason: pain) Qty: 60 RF: 0 Continue fluticasone [Flonase Allergy Relief] 50 mcg/actuation [place],Suspension 1 spray INTRANASAL DAILY PRN (Reason: seasonal allergies) RF: 0 oxycodone-acetaminophen [Percocet] 5 MG/325 MG tablet 1 tab PO BEDTIME RF: 0 Discontinued hydroxyzine pamoate [Vistaril] 25 MG capsule 1 cap PO Q6HP PRN (Reason: pain) RF: 0 Follow up/Referrals: Patricia Sy MD [Physician] - aJmes Randle [Primary Care Provider] - (Follow-up on 01/17/2018 at 3:10 p.m. at [facility]. Any issues or concerns contact the office.) Provider Discharge Instructions Diet: Diet as Tolerated Activity: Ambulate with assistance of a walker/cane. Lifting/bending/twisting precautions. Cold/Heat Therapy: Apply ice as needed for pain and inflammation. Skin/Wound/Dressing Care Report to your healthcare provider any signs of infection, such as:: chills, fever, increased pain and unusual drainage Dressing: Leave dressing on until follow-up visit. May shower but not immerse dressing and water. Visit Report/Discharge Packet Instructions: DI for Transforaminal Lumbar Interbody Fusion Visit Report Forms: Stroke Signs & Symptoms Discharge Data Primary Care Provider: James Randle Attending Provider: Patricia Sy Admit Date/Time: 01/05/18 05:57
--- NOTE | 2018-01-07 09:57 | OT.IP.TRT ---
Current Diagnoses Spinal stenosis, lumbar region without neurogenic claudication (01/05/18) Intervertebral disc disorders with radiculopathy, lumbar region (01/05/18) Other specified postprocedural states (01/05/18) Surgery Performed Operation Date: 01/05/18 07:45 Actual Procedures p L4-5,L5-S1 TLIF with Posterior Instrumentation - Patricia Sy MD Occupational Therapy Treatment Note M2 OT-IP Current Condition Start: 01/06/18 14:34 Freq: Status: Active Protocol: Document 01/06/18 14:00 [facility] (Rec: 01/06/18 14:51 [facility] [id number]) Occupational Therapy Current Condition Current Condition Evaluation Date 01/06/18 Treatment Diagnosis Spinal stenosis Diagnosis Onset Date 01/05/18 Post Operative Precautions Lumbar Precautions Log Roll No Twisting Limit Bending Lifting Restriction of 10 lbs Gait Belt above Incisional Area M3 OT- IP Subjective and Pain Start: 01/06/18 14:34 Freq: Status: Active Protocol: Document 01/07/18 09:53 [facility] (Rec: 01/07/18 09:56 [facility] [id number]) OT- Subjective Occupational Therapy Visit Type Type Treatment Note Visit Start Time 09:40 Visit Stop Time 09:50 Total Visit Minutes 10 Occupational Therapy Visit Comments Patient/Caregiver Goals Pt ready to go home today and wanting to shower at home. OT Pain Assessment Pain When Pain Assessed At Rest Pain Present Pain Present Denied Pain M4 OT- IP ADL's Start: 01/06/18 14:34 Freq: Status: Active Protocol: Document 01/07/18 09:53 [facility] (Rec: 01/07/18 09:56 [facility] [id number]) OT ADL-Dressing General Eval Upper Body Dressing Ability Independent Lower Body Dressing Ability Standby Assistance Areas Needing Assistance Retrieving/Set-up of Clothing Comments OT Dressing Comments Pt able to do LB dressing safely for all needs, reminders to use lead programmer to reach for clothing. M6 OT- IP Functional Cognition Start: 01/06/18 14:34 Freq: Status: Active Protocol: Document 01/06/18 14:00 [facility] (Rec: 01/06/18 14:51 [facility] [id number]) Cognitive Factors Limiting Selfcare Function Cognitive Ability Level of Alertness Alert Patient Orientation Name Age Birthday Month Date Year Day of Week Place Situation Attention Span Ability Capable of Focused Attention Capable of Sustained Attention Ability to Follow Commands Able to Follow Multi-Step Commands Memory Description No Deficits Noted Safety Awareness Underestimates Need for Assistance Cognitive Comments Cognitive Assessment Comments Pt doing well and able to incorporate back precautions for needs. VC to reach back before sitting. Pt able do show good safety to sit down with good balance on BUE on FWW. OT- Vision and Hearing OT- Hearing Assessment OT- Hearing Assessment WFL M7 OT- IP Mobility and Balance Start: 01/06/18 14:34 Freq: Status: Active Protocol: Document 01/07/18 09:53 [facility] (Rec: 01/07/18 09:56 [facility] [id number]) OT- Bed Mobility Assessment Rolling Type of Rolling Roll to Left Level of Assistance Independent Supine to Sit Supine to Sit Assist Independent OT-Transfer Assessment Sit to and From Stand Sit to and from Stand Independent Transfers Transfer Ability Independent Technique Transfer Destination Chair Transfer Technique Stand Step Pivot Devices Transfer Assistive Devices Gait Belt Front Wheeled Walker OT- Balance Assessment Sitting Balance and Reactions Static Sitting Balance Ability Normal Dynamic Sitting Balance Ability Normal Standing Balance and Reactions Static Standing Balance Ability Normal Dynamic Standing Balance Ability Good M8 OT- IP Objective Assessments Start: 01/06/18 14:34 Freq: Status: Active Protocol: Document 01/06/18 14:00 [facility] (Rec: 01/06/18 14:51 [facility] [id number]) OT Gross Range of Motion Upper Extremity Range of Motion Assessment Within Functional Limits OT Strength Upper Extremity Strength Assessment Within Functional Limits OT-Muscle Tone Assessment Muscle Tone WNL Yes M9 OT- IP Assessment and Plan Start: 01/06/18 14:34 Freq: Status: Active Protocol: Document 01/07/18 09:53 [facility] (Rec: 01/07/18 09:56 [facility] [id number]) OT Summary Assessment and Plan Summary Assessment Summary Pt ready to go home and able to show good safety of back precautions for all Adl needs. Discharge Recommendations OT Discharge Recommendations Home with Assistance Home Equipment Needs FWW already issued.
--- NOTE | 2018-01-07 12:52 | CM.DPC ---
DC Note: Home w/family, no barriers to safe DC home. Provided information for [facility] to f/u on Q about DME: ice pad w/circulating cold water. JW
== END 2018-01-07 11:50 | disposition home or self-care (01) | DRG 455 ==
PROVIDERS: Admitting Provider Orthopaedic Surgery Orthopaedic Surgery of the Spine; Family Provider Radiology Diagnostic Radiology; PCP Radiology Diagnostic Radiology; Visit Provider Orthopaedic Surgery Orthopaedic Surgery of the Spine
PROC: 0SG00AJ Fusion of Lumbar Vertebral Joint with Interbody Fusion Device, Posterior Approach, Anterior Column, Open Approach (ICD-10-PCS; principal; 2018-01-05 07:45)
DX: M48.061 Spinal stenosis, lumbar region without neurogenic claudication (principal); M51.16 Intervertebral disc disorders with radiculopathy, lumbar region; M48.07 Spinal stenosis, lumbosacral region; M47.26 Other spondylosis with radiculopathy, lumbar region; M47.27 Other spondylosis with radiculopathy, lumbosacral region
CPT/HCPCS: 36415; 72100; 76001; 85014; 85018; 94760; 94762; 97116; 97161; 97165; 97530; 97535; C1776; C9290; J0131; J0330; J0690; J1100; J1170; J2060; J2250; J2405; J2704; J3010

== ENCOUNTER 2018-01-18 16:51 | Emergency (ER) | payer OTHER, SELFPAY ==
[2018-01-05 14:59] VITALS: BMI 26.5
[2018-01-18 17:01] VITALS: BP 118/66; PULSE 82; RESP 15; TEMP 36.7; O2SAT 99; BMI 25.7
[2018-01-18 18:16] VITALS: PULSE 82
--- NOTE | 2018-01-18 18:18 | PC.NURSE ---
Pt foot is pale and cool but the same as left foot.
--- NOTE | 2018-01-18 18:36 | DI.US.S_ITS ---
PROCEDURE: US PERIPH VENOUS LOW EXTREM RT INDICATIONS: PAIN POST OP TECHNIQUE: Real-time imaging, as well as color and pulse Doppler interrogation, were performed of the lower extremity deep veins from the inguinal ligament to the popliteal fossa. COMPARISON: None. FINDINGS: The deep veins are normally compressible, and free of intraluminal thrombus. Color and pulse Doppler demonstrate normal phasic intraluminal flow. There is normal augmentation response to distal compression maneuver. IMPRESSION: No evidence of right lower extremity DVT. Dictated by: Abbey Ortega M.D. on 01/18/2018 at 20:35 Approved by: Abbey Ortega M.D. on 01/18/2018 at 20:36
--- NOTE | 2018-01-18 19:34 | ED.EXTPRO ---
HPI - Extremity Problem General Chief complaint: Extremity Problem,Nontraumatic Stated complaint: sent for US to R/O DVT Time Seen by Provider: 01/18/18 18:23 Source: patient Mode of arrival: ambulatory Limitations: no limitations History of Present Illness HPI Narrative: 42-year-old male with recent history of lumbar surgery presents at the request of his orthopedist for evaluation of right lower extremity pain and perceived swelling over the past few days. He denies any redness or warmth but states there is episodic pain behind his right knee. He had paperwork for an outpatient ultrasound. He denies history of clot as well as any chest pain, shortness of breath or cough. He has had no hemoptysis. He states his pain is episodic and largely behind his right knee, he denies any provocation of this pain Related Data Home Medications Medication Instructions Recorded Confirmed fluticasone [Flonase Allergy 1 spray INTRANASAL DAILY PRN 12/14/17 01/18/18 Relief] diazepam 1 tab PO TID 01/18/18 01/18/18 gabapentin 300 mg PO TID 01/18/18 01/18/18 hydroxyzine pamoate 25 mg PO QID PRN 01/18/18 01/18/18 ondansetron HCl 1 tab PO Q6H PRN 01/18/18 01/18/18 oxycodone-acetaminophen 1 tab PO TID PRN 01/18/18 01/18/18 Previous Rx's Medication Instructions Recorded walker #1 each 01/06/18 acetaminophen 650 mg PO Q6HR PRN #0 tab 01/07/18 oxycodone 15 mg PO Q4H PRN #60 tab 01/07/18 Allergies Allergy/AdvReac Type Severity Reaction Status Date / Time No Known Drug Allergies Allergy Verified 01/18/18 17:01 Review of Systems Review of Systems All systems reviewed & are unremarkable except as noted in HPI and below Constitutional Denies chills, Denies fever(s), Denies lethargy and Denies weakness Eyes Denies change in vision, Denies eye discharge, Denies irritation and Denies loss of vision ENT Ears, Nose, Mouth, and Throat: Denies change in voice, Denies neck pain and Denies sore throat Cardiovascular Denies chest pain, Denies irregular heart rhythm, Denies lightheadedness, Denies palpitations, Denies dyspnea, Denies dyspnea on exertion and Denies orthopnea Respiratory Denies cough, Denies dyspnea, Denies dyspnea on exertion and Denies wheezing Gastrointestinal Gastrointestinal: Denies abdominal pain, Denies change in bowel habits, Denies diarrhea, Denies nausea and Denies vomiting Genitourinary Denies hematuria, Denies flank pain, Denies urinary incontinence and Denies urinary urgency Musculoskeletal Reports limited range of motion and Denies neck pain Integumentary/Breasts Denies pruritus, Denies erythema, Denies rash and Denies wounds Neurologic Denies confusion, Denies loss of vision and Denies weakness Psychiatric Denies anxiety, Denies confusion, Denies depression, Denies homicidal ideation and Denies suicidal ideation Endocrine Denies palpitations Hematologic/Lymphatic Denies easy bruising Allergic/Immunologic Denies wheezing PFSH Medical History Allergic rhinitis (Acute) Ankle pain (Acute) Astigmatism (Acute) Bursitis (Acute) Degeneration of lumbar intervertebral disc (Acute) Diplopia (Acute) Gastroenteritis (Acute) Hamstring sprain (Acute) Hip pain (Acute) History of pneumonia (Acute) Hyperglycemia (Acute) Hyperlipoproteinemia (Acute) Left knee pain (Acute) Low back pain (Acute) Lumbar disc herniation with radiculopathy (Acute) Myopia (Acute) Paronychia (Acute) Spasm of accommodation (Acute) Spinal stenosis of lumbar region at multiple levels (Acute) [place] teeth extracted (Acute) Surgical History History of appendectomy (Acute ~2000) History of lumbar laminectomy (Acute) Social History household members: spouse and children Smoking Status: Former smoker alcohol intake: current Exam Narrative Exam Narrative: GEN: AOx3 and in mild distress EYES: Pupils are equal, round, and reactive to light and accommodation. Extraoccular muscles are intact bilaterally. There is no subconjunctival hemorrhage or exudate. CHEST: Lungs are clear to auscultation bilaterally and free of wheezes, rales, or rhonchi. Heart rate is regular rhythm, there are no murmurs, clicks, rubs, or gallops. There is no chest wall tenderness. ABD: Abdomen is soft and nontender. There is no guarding or rebound. Bowel sounds are normal in all 4 quadrants. There is no mass or organomegaly. EXT: Full painless ROM of all extremities with no loss of sensation or strength. No redness, swelling or warmth of right lower extremity to suggest DVT clinically SKIN: Warm, pink, and dry. No erythema or rash Initial Vital Signs Initial Vital Signs: Vital Signs Temperature 98.1 F 01/18/18 17:01 Pulse Rate 82 01/18/18 17:01 Respiratory Rate 15 01/18/18 17:01 Blood Pressure 118/66 01/18/18 17:01 Pulse Oximetry 99 01/18/18 17:01 Course Orders Ordered: ED Orders 01/18/18 18:36 US periph venous low extrem rt Stat Vital Signs - 8 hr 01/18/18 18:16 01/18/18 19:44 Pulse Rate 85 Pulse Rate [Right Dorsalis Pedis] 82 Blood Pressure 121/73 Pulse Oximetry 100 MDM - Extremity (Nontraumatic) Imaging Data Venous US: Radiologist's impression: [address] [address] Ultrasound Report Signed Patient: Noam Mcdowell BMR#: [id number] : 1975Acct:[id number] Age/Sex: 42 / MDate of Service: 01/18/18 Loc: ED Accession Number: [id number] Procedure: US perip venous low extrem rt Ordering Provider: Rasheed Garsia D.O. PROCEDURE: US PERIPH VENOUS LOW EXTREM RT INDICATIONS: PAIN POST OP TECHNIQUE: Real-time imaging, as well as color and pulse Doppler interrogation, were performed of the lower extremity deep veins from the inguinal ligament to the popliteal fossa. COMPARISON: None. FINDINGS: The deep veins are normally compressible, and free of intraluminal thrombus. Color and pulse Doppler demonstrate normal phasic intraluminal flow. There is normal augmentation response to distal compression maneuver. IMPRESSION: No evidence of right lower extremity DVT. Dictated by: Abbey Ortega M.D. on 01/18/2018 at 20:35 Approved by: Abbey Ortega M.D. on 01/18/2018 at 20:36 Discharge Plan Departure Patient Disposition: Home Clinical Impression: Pain of right calf Discharge Date/Time: 01/18/18 19:45 Interventions: ED Discharge Assessment Last Done: 01/18/18 19:44 Instructions: DI for Leg Pain Activity Restrictions/Additional Instructions: *You have been diagnosed with [ right lower extremity pain ] *What to do: * continue to take medications as directed * ultrasound demonstrated no DVT *Follow up with your primary care provider in 2-3 days, call for an appointment. Let them know you were seen in the Emergency Department and that we ask that you be seen in follow up *Return to ER if you should have any new, worsening or concerning symptoms Prescriptions: No Action fluticasone [Flonase Allergy Relief] 50 mcg/actuation [place],Suspension 1 spray INTRANASAL DAILY PRN (Reason: seasonal allergies) RF: 0 walker Misc Qty: 1 RF: 0 acetaminophen 325 mg Tablet 650 mg PO Q6HR PRN (Reason: Pain, Mild (1-3)) Qty: 0 RF: 0 oxycodone 15 mg tablet 15 mg PO Q4H PRN (Reason: pain) Qty: 60 RF: 0 ondansetron HCl 4 mg tablet 1 tab PO Q6H PRN (Reason: Nausea) RF: 0 gabapentin 300 mg Capsule 300 mg PO TID RF: 0 diazepam 5 mg tablet 1 tab PO TID RF: 0 hydroxyzine pamoate 25 mg capsule 25 mg PO QID PRN (Reason: Spasms) RF: 0 oxycodone-acetaminophen 5-325 mg tablet 1 tab PO TID PRN (Reason: PAIN) RF: 0 Referrals: James Randle [Primary Care Provider] -
[2018-01-18 19:44] VITALS: BP 121/73; PULSE 85; O2SAT 100
== END 2018-01-18 19:45 | disposition home or self-care (01) ==
PROVIDERS: Emergency Provider Emergency Medicine; Family Provider Radiology Diagnostic Radiology; PCP Radiology Diagnostic Radiology
DX: M79.661 Pain in right lower leg (principal)
CPT/HCPCS: 93971; 99282; 99284

== ENCOUNTER → 2018-02-03 09:48 | Outpatient (CLI) | payer OTHER, SELFPAY ==
[2018-01-05 14:59] VITALS: BMI 26.5
--- NOTE | 2018-02-03 | DI.CT.S_ITS ---
PROCEDURE: CT LUMBAR SPINE WO CON INDICATIONS: INTERVERTEBRAL DISC DISORDER/LUMBAR RIGHT SIDED RADICULOPATHY FOR ONE MONTH TECHNIQUE: Noncontrast 3 mm thick sections acquired from the T12 level to the sacrum. Sagittal and coronal reformats were constructed. For radiation dose reduction, the following was used: automated exposure control. COMPARISON: None. FINDINGS: Image quality: Excellent. Bones: Postsurgical changes compatible L4-L5 and L5-S1 posterior interbody fusion noted. There is trace L4-L5 retrolisthesis. Orthopedic hardware is intact. No lucency is identified at the bone hardware interface. Postsurgical changes compatible with right L4-L5 and L5-S1 partial facetectomies noted. No acute vertebral body compression fractures. No suspicious lytic or blastic bony lesions. Central spinal caliber is of normal overall caliber. No pars defects. T12-L1: Normal appearance. L1-L2: Normal appearance. L2-L3: Normal appearance. L3-L4: The disc height is normal. Mild, diffuse disc bulge. No central stenosis. No neural foraminal narrowing. No definite neural impingement. L4-L5: Status post fusion. No central stenosis. Mild bilateral neural foraminal narrowing. No definite neural impingement. L5-S1: Status post fusion. No central stenosis. Severe left neural foraminal narrowing secondary to disc osteophyte complex with a slight flattened deformity of the exiting left L5 nerve root. Soft tissues: No retroperitoneal masses or hematomas. Visualized aorta is normal in caliber. IMPRESSION: 1. Postsurgical changes. 2. No central stenosis. 3. Severe left L5-S1 neural foraminal narrowing. Mild bilateral L4-L5 neural foraminal narrowing. 4. Slight flattened deformity of the exiting left L5 nerve root secondary to neural foraminal narrowing. Please correlate with clinical data. Dictated by: Amada Billy MD, PhD on 02/03/2018 at 10:26 Approved by: Amada Billy MD, PhD on 02/03/2018 at 10:31
== END ==
PROVIDERS: PCP Radiology Diagnostic Radiology; Visit Provider Orthopaedic Surgery Orthopaedic Surgery of the Spine
DX: M48.07 Spinal stenosis, lumbosacral region (principal); M54.16 Radiculopathy, lumbar region; Z98.1 Arthrodesis status
CPT/HCPCS: 72131

== ENCOUNTER 2018-06-18 16:49 | Emergency (ER) | payer OTHER, SELFPAY ==
[2018-01-05 14:59] VITALS: BMI 26.5
[2018-06-18 17:07] VITALS: BP 136/86; PULSE 87; RESP 18; TEMP 37; O2SAT 100; BMI 25.7
--- NOTE | 2018-06-18 18:05 | PC.NURSE ---
PT with thyroid surgery on Tuesdays. Reports pain on bilateral sides of neck just below jaw. Reports yesterday increased swelling above incision. Pt states feels pressure in throat with swallowing and breathing. Pt able to take full breath and speak in full sentences. Does have visualized swelling and redness above incision. Incision is clean dry and intact. No drainage from incision.
--- NOTE | 2018-06-18 18:07 | ED_ITS ---
HPI - Neck Pain/Injury <FRANK Fuller - Last Filed: 06/18/18 21:37> General Chief Complaint: Neck Pain/Injury Stated Complaint: Recent throat surgery,swelling and hard to breath Time Seen by Provider: 06/18/18 17:11 Source: patient Mode of arrival: ambulatory Limitations: no limitations History of Present Illness HPI Narrative: 43-year-old male with history of chronic back pain and is a former smoker here for complaint of sensation of swelling into his neck and throat area. He has recently just had surgery to remove a mass to his right thyroid area by ENT he denies any fevers or chills. No trauma to the area other than the surgery. He is able to speak full sentences. He is denies any cough he has not been coughing anything up. No drainage from the incision site no bleeding. Positive p.o. intake with no nausea vomiting. He states that it feels like there is also some swelling to the incision site. Related Data Home Medications Medication Instructions Recorded Confirmed fluticasone [Flonase Allergy 1 spray INTRANASAL DAILY PRN 12/14/17 01/18/18 Relief] diazepam 1 tab PO TID 01/18/18 01/18/18 gabapentin 300 mg PO TID 01/18/18 01/18/18 hydroxyzine pamoate 25 mg PO QID PRN 01/18/18 01/18/18 ondansetron HCl 1 tab PO Q6H PRN 01/18/18 01/18/18 oxycodone-acetaminophen 1 tab PO TID PRN 01/18/18 01/18/18 Previous Rx's Medication Instructions Recorded walker #1 each 01/06/18 acetaminophen 650 mg PO Q6HR PRN #0 tab 01/07/18 oxycodone 15 mg PO Q4H PRN #60 tab 01/07/18 amoxicillin-pot clavulanate 1 tab PO BID #6 tab 06/18/18 prednisone 40 mg PO DAILY #4 tab 06/18/18 Allergies Allergy/AdvReac Type Severity Reaction Status Date / Time No Known Drug Allergies Allergy Verified 06/18/18 17:11 Review of Systems <FRANK Fuller - Last Filed: 06/18/18 21:37> Constitutional Denies chills, Denies fever(s), Denies lethargy and Denies weakness Eyes Denies change in vision, Denies eye discharge, Denies irritation and Denies loss of vision ENT Comments: Sensation of swelling of his t throat and neck Cardiovascular Denies chest pain, Denies irregular heart rhythm, Denies lightheadedness, Denies palpitations, Denies dyspnea, Denies dyspnea on exertion and Denies orthopnea Respiratory Denies cough, Denies dyspnea, Denies dyspnea on exertion and Denies wheezing Gastrointestinal Gastrointestinal: Denies abdominal pain, Denies change in bowel habits, Denies diarrhea, Denies nausea and Denies vomiting Genitourinary Denies hematuria, Denies flank pain, Denies urinary incontinence and Denies urinary urgency Musculoskeletal Denies back pain, Denies muscle weakness, Denies numbness and Denies tingling Integumentary/Breasts Denies pruritus, Denies erythema, Denies rash and Denies wounds Neurologic Denies confusion, Denies loss of vision, Denies numbness, Denies tingling and Denies weakness Psychiatric Denies anxiety, Denies confusion, Denies depression, Denies homicidal ideation and Denies suicidal ideation Endocrine Denies palpitations Hematologic/Lymphatic Denies easy bruising Allergic/Immunologic Denies wheezing PFSH <FRANK Fuller - Last Filed: 06/18/18 21:37> Medical History Allergic rhinitis (Acute) Ankle pain (Acute) Astigmatism (Acute) Bursitis (Acute) Degeneration of lumbar intervertebral disc (Acute) Diplopia (Acute) Gastroenteritis (Acute) Hamstring sprain (Acute) Hip pain (Acute) History of pneumonia (Acute) Hyperglycemia (Acute) Hyperlipoproteinemia (Acute) Left knee pain (Acute) Low back pain (Acute) Lumbar disc herniation with radiculopathy (Acute) Myopia (Acute) Paronychia (Acute) Spasm of accommodation (Acute) Spinal stenosis of lumbar region at multiple levels (Acute) [place] teeth extracted (Acute) Surgical History History of appendectomy (Acute ~2000) History of lumbar laminectomy (Acute) Social History household members: spouse and children Smoking Status: Former smoker alcohol intake: current Social History household members: spouse and children Smoking Status: Former smoker alcohol intake: current Exam <FRANK Fuller - Last Filed: 06/18/18 21:37> Initial Vital Signs Initial Vital Signs: Vital Signs Temperature 98.6 F 06/18/18 17:07 Pulse Rate 87 06/18/18 17:07 Respiratory Rate 18 06/18/18 17:07 Blood Pressure 136/86 06/18/18 17:07 Pulse Oximetry 100 06/18/18 17:07 Const General: cooperative and well developed Nutritional Appearance: well nourished Orientation: alert, awake, oriented x3 and not confused HENMS Mouth: oral mucosae normal and moist mucous membranes Eyes General: appearance normal, both eyes and all related structures Eyelids: eyelids normal Conjunctivae: conjunctivae normal Sclera: sclerae normal Pupils: PERRL EOM: EOM intact bilaterally Neck Neck: normal visual inspection, trachea midline, No lymphadenopathy, No midline deformity and No JVD Lymphatic: No lymphedema Other: incision site to anterior neck with no signs of infection. No induration no fluctuance. Slight amount of swelling is felt to the thyroid ar ea. Resp Effort & Inspection: normal respiratory effort, able to speak in complete sentences, no respiratory distress and no use of accessory muscles Auscultation: clear to auscultation bilaterally, no rales, no rhonchi and no wheezes Cardio Rate: regular rate Rhythm: regular rhythm Heart Sounds: no click, no gallops, no murmurs and no rubs Pulses: normal peripheral pulses Neuro General: alert, oriented x3, gait normal and no focal motor deficits Speech: speech normal <Rasheed Garsia DO - Last Filed: 06/18/18 22:00> Initial Vital Signs Initial Vital Signs: Vital Signs Temperature 98.6 F 06/18/18 17:07 Pulse Rate 87 06/18/18 17:07 Respiratory Rate 18 06/18/18 17:07 Blood Pressure 136/86 06/18/18 17:07 Pulse Oximetry 100 06/18/18 17:07 Course <FRANK Fuller - Last Filed: 06/18/18 21:37> Orders Ordered: ED Orders 06/18/18 18:13 CT soft tissue neck w con Stat 06/18/18 18:30 Complete Blood Count AUTO DIFF Stat Comprehensive Metabolic Panel Stat Discontinued Medications Acetaminophen (Tylenol) 650 mg PO NOW ONE Stop: 06/18/18 20:01 Last Admin: 06/18/18 20:04 Dose: 650 mg Amoxicillin/Clavulanate Potassium (Augmentin 875-125 Mg) 1 tab PO NOW ONE Stop: 06/18/18 20:02 Last Admin: 06/18/18 20:05 Dose: 1 tab Prednisone (Deltasone) 40 mg PO NOW ONE Stop: 06/18/18 20:01 Last Admin: 06/18/18 20:05 Dose: 40 mg Vital Signs - 8 hr 06/18/18 17:07 06/18/18 19:31 06/18/18 20:32 Temperature 98.6 F Pulse Rate 87 62 62 Respiratory Rate 18 14 14 Blood Pressure 136/86 108/70 Blood Pressure [Right Arm] 111/72 Pulse Oximetry 100 100 100 <Rasheed Garsia DO - Last Filed: 06/18/18 22:00> Orders Ordered: ED Orders 06/18/18 18:13 CT soft tissue neck w con Stat 06/18/18 18:30 Complete Blood Count AUTO DIFF Stat Comprehensive Metabolic Panel Stat Discontinued Medications Acetaminophen (Tylenol) 650 mg PO NOW ONE Stop: 06/18/18 20:01 Last Admin: 06/18/18 20:04 Dose: 650 mg Amoxicillin/Clavulanate Potassium (Augmentin 875-125 Mg) 1 tab PO NOW ONE Stop: 06/18/18 20:02 Last Admin: 06/18/18 20:05 Dose: 1 tab Prednisone (Deltasone) 40 mg PO NOW ONE Stop: 06/18/18 20:01 Last Admin: 06/18/18 20:05 Dose: 40 mg Vital Signs - 8 hr 06/18/18 17:07 06/18/18 19:31 06/18/18 20:32 Temperature 98.6 F Pulse Rate 87 62 62 Respiratory Rate 18 14 14 Blood Pressure 136/86 108/70 Blood Pressure [Right Arm] 111/72 Pulse Oximetry 100 100 100 MDM - Neck Pain/Injury <FRANK Fuller - Last Filed: 06/18/18 21:37> Lab Data Result diagrams: 06/18/18 18:30 06/18/18 18:30 Lab Results 06/18/18 06/18/18 Range/Units 18:30 18:30 WBC 7.7 (4.5-11.0) X10^3/uL RBC 4.77 (4.5-5.9) X10^6/uL Hgb 14.6 (13.5-17.5) g/dL Hct 43.7 (41-53) % MCV 91.6 (80-100) fL MCH 30.6 (26-34) PG MCHC 33.4 (30-36) % RDW 13.9 (11.6-14.8) % Plt Count 261 (150-400) X10^3/uL Neut % (Auto) 60.1 (50-75) % Lymph % (Auto) 30.3 (25-40) % [place] % (Auto) 8.3 (3-14) % Eos % (Auto) 0.7 L (2-4) % Baso % (Auto) 0.6 (0-2) % Neut # (Auto) 4600 (0332-5531) /uL Lymph # (Auto) 2300 (5782-4516) /uL [place] # (Auto) 600 (0-900) /uL Eos # (Auto) 100 (0-450) /uL Baso # (Auto) 0 (0-100) /uL Sodium 141 (137-145) mmol/L Potassium 4.0 (3.4-5.1) mmol/L Chloride 103 (98-107) mmol/L Carbon Dioxide 27 (22-32) mmol/L BUN 17 (9-20) mg/dL Creatinine 0.90 (0.66-1.25) mg/dL Estimated GFR > 60.0 (>60) mL/min BUN/Creatinine Ratio 18.9 (6-22) Glucose 82 (70-100) mg/dL Calcium 9.5 (8.4-10.2) mg/dL Total Bilirubin 0.4 (0.2-1.3) mg/dL AST 18 (17-59) IU/L ALT 29 (21-72) IU/L Alkaline Phosphatase 67 (38-126) U/L Total Protein 7.9 (6.3-8.2) g/dL Albumin 4.6 (3.5-5.0) g/dL Globulin 3.3 (1.7-4.1) g/dL Albumin/Globulin Ratio 1.4 (1.0-2.8) Imaging Data Soft tissue neck : Radiologist's impression: [address] [place] [id number] Scan Report Signed Patient: Noam Mcdowell BMR#: [id number] : 1975Acct:[id number] Age/Sex: 43 / MDate of Service: 06/18/18 Loc: ED Accession Number: [id number] Procedure: CT soft tissue neck w con Ordering Provider: Bhanu Zeng PROCEDURE: CT SOFT TISSUE NECK W CON INDICATIONS: Swelling to neck and feeling of shortness of breath TECHNIQUE: After the administration of intravenous contrast, 3.0 mm axial sections acquired from the sella to the aortic arch. Additional oblique axial 3.0 mm sections acquired through the pharynx. 3 mm thick coronal and sagittal reformats were generated. For radiation dose reduction, the following was used: automated exposure control. COMPARISON: None. FINDINGS: Image quality: Excellent. Lymph nodes: No enlarged lymph nodes seen throughout the neck. Vessels: Visualized vasculature appears patent. Neck spaces: The oropharynx, nasopharynx, and pharynx demonstrate no mucosal lesions. The vocal cords, false vocal cords, pyriform sinuses, epiglottis, vallecula, and tongue base all appear normal. Extramucosal spaces appear unremarkable. Glands: The parotid and submandibular glands appear normal. Thyroid gland demonstrates right lobe resection changes. Anterior to the trachea at the level of the thyroid, there is low attenuation fluid which becomes infiltrated with the adjacent sternocleidomastoid masseter. The fluid also extends posteriorly into the fossa of the now resected right thyroid lobe. Overall area measures approximately 3.6 cm AP by 4.5 cm transverse. There is no discrete enhancement.. Miscellaneous: Visualized brain and orbits appear normal. Lung apices appear clear. Superficial soft tissues appear normal. Bones: No suspicious bony lesions. Visualized sinuses and mastoids appear unremarkable. IMPRESSION: 1. Right right lobe resection with fluid extending into the right thyroid lobe fossa and extending anteriorly infiltrate in the sternocleidomastoid as above. There is no compromise of the airway. No areas of enhancement are identified. This is suspected to represent postoperative phlegmon. However, developing abscess cannot be excluded and close interval imaging and clinical followup is recommended. Dictated by: Keily Guzman M.D. on 06/18/2018 at 19:44 Approved by: Keily Guzman M.D. on 06/18/2018 at 19:47 ECG Data Interpretation: [address] [place] [address] Narrative Medical decision making narrative: CBC and Chem panel were obtained were unremarkable. CT of the neck soft tissue was obtained and it shows some fluid extending into the right thyroid fossa and anteriorly into the sternocleidomastoid does not appear as it is an abscess at this point and is most likely as sequelae to the surgery. It is most likely phlegmon. discussed case with Dr. Black ENT who recommends putting patient on short course of A ugmentin for 3 days just to be sure as a precaution. He is also placed on a 3 days of prednisone 40 mg. Continue taking medications as prescribed for discomfort. He is to call ENT office tomorrow to schedule follow-up appointment tomorrow for re-evaluation. For any worsening symptoms return to the emergency room. Patient is in no acute distress is able speak full sentences. <Rasheed Garsia, - Last Filed: 06/18/18 22:00> Lab Data Lab Results 06/18/18 06/18/18 Range/Units 18:30 18:30 WBC 7.7 (4.5-11.0) X10^3/uL RBC 4.77 (4.5-5.9) X10^6/uL Hgb 14.6 (13.5-17.5) g/dL Hct 43.7 (41-53) % MCV 91.6 (80-100) fL MCH 30.6 (26-34) PG MCHC 33.4 (30-36) % RDW 13.9 (11.6-14.8) % Plt Count 261 (150-400) X10^3/uL Neut % (Auto) 60.1 (50-75) % Lymph % (Auto) 30.3 (25-40) % [place] % (Auto) 8.3 (3-14) % Eos % (Auto) 0.7 L (2-4) % Baso % (Auto) 0.6 (0-2) % Neut # (Auto) 4600 (9138-7648) /uL Lymph # (Auto) 2300 (9223-9224) /uL [place] # (Auto) 600 (0-900) /uL Eos # (Auto) 100 (0-450) /uL Baso # (Auto) 0 (0-100) /uL Sodium 141 (137-145) mmol/L Potassium 4.0 (3.4-5.1) mmol/L Chloride 103 (98-107) mmol/L Carbon Dioxide 27 (22-32) mmol/L BUN 17 (9-20) mg/dL Creatinine 0.90 (0.66-1.25) mg/dL Estimated GFR > 60.0 (>60) mL/min BUN/Creatinine Ratio 18.9 (6-22) Glucose 82 (70-100) mg/dL Calcium 9.5 (8.4-10.2) mg/dL Total Bilirubin 0.4 (0.2-1.3) mg/dL AST 18 (17-59) IU/L ALT 29 (21-72) IU/L Alkaline Phosphatase 67 (38-126) U/L Total Protein 7.9 (6.3-8.2) g/dL Albumin 4.6 (3.5-5.0) g/dL Globulin 3.3 (1.7-4.1) g/dL Albumin/Globulin Ratio 1.4 (1.0-2.8) Discharge Plan Departure Patient Disposition: Home Clinical Impression: Neck swelling Discharge Date/Time: 06/18/18 20:34 Interventions: ED Discharge Assessment Last Done: 06/18/18 20:32 Instructions: How to Care for a Surgical Wound Activity Restrictions/Additional Instructions: CT shows a small amount of fluid collection around the area of the surgery. You have been placed on antibiotic as prophylaxis to prevent infection use as directed. You also been prescribed steroids for anti-inflammatory effects also use as directed. Use currently prescribed pain management regimen as needed for any discomfort. Follow up with ENT tomorrow call the office tomorrow morning to schedule follow-up appointment for re-evaluation. For any worsening symptoms return to the emergency room. Prescriptions: New prednisone 20 mg tablet 40 mg PO DAILY Qty: 4 RF: 0 amoxicillin-pot clavulanate 875-125 mg tablet 1 tab PO BID Qty: 6 RF: 0 No Action fluticasone [Flonase Allergy Relief] 50 mcg/actuation [place],Suspension 1 spray INTRANASAL DAILY PRN (Reason: seasonal allergies) RF: 0 walker Misc Qty: 1 RF: 0 acetaminophen 325 mg Tablet 650 mg PO Q6HR PRN (Reason: Pain, Mild (1-3)) Qty: 0 RF: 0 oxycodone 15 mg tablet 15 mg PO Q4H PRN (Reason: pain) Qty: 60 RF: 0 ondansetron HCl 4 mg tablet 1 tab PO Q6H PRN (Reason: Nausea) RF: 0 gabapentin 300 mg Capsule 300 mg PO TID RF: 0 diazepam 5 mg tablet 1 tab PO TID RF: 0 hydroxyzine pamoate 25 mg capsule 25 mg PO QID PRN (Reason: Spasms) RF: 0 oxycodone-acetaminophen 5-325 mg tablet 1 tab PO TID PRN (Reason: PAIN) RF: 0 Referrals: Marcus Watters MD [Physician] - James Randle [Primary Care Provider] - <Rasheed Garsia DO - Last Filed: 06/18/18 22:00> [facility] ED Attending Richard Attestation: I was immediately available in the department for consultation. Documentation has been reviewed. I agree with assessment and plan.
--- NOTE | 2018-06-18 18:13 | DI.CT.S_ITS ---
PROCEDURE: CT SOFT TISSUE NECK W CON INDICATIONS: Swelling to neck and feeling of shortness of breath TECHNIQUE: After the administration of intravenous contrast, 3.0 mm axial sections acquired from the sella to the aortic arch. Additional oblique axial 3.0 mm sections acquired through the pharynx. 3 mm thick coronal and sagittal reformats were generated. For radiation dose reduction, the following was used: automated exposure control. COMPARISON: None. FINDINGS: Image quality: Excellent. Lymph nodes: No enlarged lymph nodes seen throughout the neck. Vessels: Visualized vasculature appears patent. Neck spaces: The oropharynx, nasopharynx, and pharynx demonstrate no mucosal lesions. The vocal cords, false vocal cords, pyriform sinuses, epiglottis, vallecula, and tongue base all appear normal. Extramucosal spaces appear unremarkable. Glands: The parotid and submandibular glands appear normal. Thyroid gland demonstrates right lobe resection changes. Anterior to the trachea at the level of the thyroid, there is low attenuation fluid which becomes infiltrated with the adjacent sternocleidomastoid masseter. The fluid also extends posteriorly into the fossa of the now resected right thyroid lobe. Overall area measures approximately 3.6 cm AP by 4.5 cm transverse. There is no discrete enhancement.. Miscellaneous: Visualized brain and orbits appear normal. Lung apices appear clear. Superficial soft tissues appear normal. Bones: No suspicious bony lesions. Visualized sinuses and mastoids appear unremarkable. IMPRESSION: 1. Right right lobe resection with fluid extending into the right thyroid lobe fossa and extending anteriorly infiltrate in the sternocleidomastoid as above. There is no compromise of the airway. No areas of enhancement are identified. This is suspected to represent postoperative phlegmon. However, developing abscess cannot be excluded and close interval imaging and clinical followup is recommended. Dictated by: Keily Guzman M.D. on 06/18/2018 at 19:44 Approved by: Keily Guzman M.D. on 06/18/2018 at 19:47
[2018-06-18 18:35] LABS: Add Manual Diff / Slide Review NO; Basophils Absolute Auto 0 /uL (0-100); Basophils Percent Auto 0.6 % (0-2); Eosinophils Absolute Auto 100 /uL (0-450); Eosinophils Percent Auto 0.7 % (2-4); Hematocrit 43.7 % (41-53); Hemoglobin 14.6 g/dL (13.5-17.5); Lymphocytes Absolute Auto 2300 /uL (1100-4500); Lymphocytes Percent Auto 30.3 % (25-40); Mean Corpuscular HGB Conc 33.4 % (30-36); Mean Corpuscular Hemoglobin 30.6 PG (26-34); Mean Corpuscular Volume 91.6 fL (80-100); Monocytes Absolute Auto 600 /uL (0-900); Monocytes Percent Auto 8.3 % (3-14); Neutrophils Absolute Auto 4600 /uL (1500-7000); Neutrophils Percent Auto 60.1 % (50-75); Platelet Count 261 X10^3/uL (150-400); Red Blood Cell Count 4.77 X10^6/uL (4.5-5.9); Red Cell Distribution Width 13.9 % (11.6-14.8); White Blood Cell Count 7.7 X10^3/uL (4.5-11.0)
[2018-06-18 18:46] LABS: Alanine Aminotransferase 29 IU/L (21-72); Albumin 4.6 g/dL (3.5-5.0); Albumin Globulin Ratio 1.4 (1.0-2.8); Alkaline Phosphatase 67 U/L (38-126); Aspartate Aminotransferase 18 IU/L (17-59); BUN Creatinine Ratio 18.9 (6-22); Bilirubin Total 0.4 mg/dL (0.2-1.3); Blood Urea Nitrogen 17 mg/dL (9-20); Calcium 9.5 mg/dL (8.4-10.2); Carbon Dioxide 27 mmol/L (22-32); Chloride 103 mmol/L (98-107); Estimated Glomerular Filt Rate > 60.0 mL/min (>60); Globulin 3.3 g/dL (1.7-4.1); Glucose 82 mg/dL (70-100); HEMOLYSIS < 15 (0-50); Sodium 141 mmol/L (137-145); Total Protein 7.9 g/dL (6.3-8.2)
[2018-06-18 19:31] VITALS: BP 111/72; PULSE 62; RESP 14; O2SAT 100
[2018-06-18] MEDS: ACETAMINOPHEN 325 MG TABLET 650 MG PO (20:04)
[2018-06-18] MEDS: AMOXICILLIN/CLAV 875/125 MG 1 TAB PO (20:05)
[2018-06-18] MEDS: predniSONE 20 MG TABLET 40 MG PO (20:05)
[2018-06-18 20:32] VITALS: BP 108/70; PULSE 62; RESP 14; O2SAT 100
== END 2018-06-18 20:34 | disposition home or self-care (01) ==
PROVIDERS: Emergency Provider Nurse Practitioner Family; PCP Radiology Diagnostic Radiology
DX: R22.1 Localized swelling, mass and lump, neck (principal)
CPT/HCPCS: 36591; 70491; 80053; 85025; 99282; 99285; Q9967

== ENCOUNTER → 2018-06-29 14:01 | Outpatient (REF) | payer OTHER, SELFPAY ==
[2018-01-05 14:59] VITALS: BMI 26.5
== END ==
LOC: LAB 14:01
PROVIDERS: PCP Radiology Diagnostic Radiology; Visit Provider Otolaryngology
DX: E04.1 Nontoxic single thyroid nodule (principal)
CPT/HCPCS: 87070; 87077; 87186; 87205

== ENCOUNTER → 2020-04-08 15:39 | Outpatient (CLI) | payer OTHER, SELFPAY ==
[2018-01-05 14:59] VITALS: BMI 26.5
--- NOTE | 2020-04-08 15:41 | DI.MRI.S_ITS ---
PROCEDURE: MR LUMBAR SPINE WO/W CON INDICATIONS: Strain of muscle, fascia and tendon of lower back, TECHNIQUE: Noncontrast sagittal T1 spin echo and T2 fast spin echo, sagittal STIR, axial T1 and T2 fast spin echo through the lumbar spine. In cases with scoliosis, additional coronal T2 fast spin echo may be performed. After the administration of contrast, sagittal and axial T1 spin echo with fat saturation through the lumbar spine. COMPARISON: None. FINDINGS: Image quality: Excellent. Postsurgical changes of L4-S1 posterior fixation by means of bilateral rods and pedicle screws. Susceptibility artifact related to the hardware limits evaluation of marrow signal and abnormal enhancement at the operative levels. Within this limitation, there is no obvious abnormal bone marrow signal or soft tissue signal. There is enhancement within the laminectomy defects at the operative levels partially encasing the epidural space, consistent with granulation tissue (epidural fibrosis). Normal alignment of the lumbar spine. Vertebral body heights maintained. Normal marrow signal intensity at the non operative levels. Normal position and appearance of the conus. Partially included retroperitoneal visceral structures demonstrate no acute abnormality. L1-L2: No spinal canal or neural foraminal stenosis. L2-L3: No spinal canal or neural foraminal stenosis. L3-L4: No spinal canal or neural foraminal stenosis. L4-L5: No spinal canal stenosis. Residual foraminal components of disc material and posterior osteophytic ridging combine to produce mild bilateral neural foraminal narrowing. L5-S1: No spinal canal stenosis. Residual disc material within the right neural foramen contributes to severe neural foraminal stenosis. There is abutment and flattening of the exiting right L5 nerve root. IMPRESSION: Moderate-severe neural foraminal narrowing on the right at L5-S1. Correlate for any corresponding L5 radicular symptoms. Postsurgical changes of L4-S1 posterior fixation with no acute complicating hardware feature. Epidural fibrosis at the operative levels noted. Dictated by: Christopher Craig M.D. on 04/08/2020 at 16:01 Approved by: Christopher Craig M.D. on 04/08/2020 at 16:05
== END ==
PROVIDERS: PCP Radiology Diagnostic Radiology; Referring Provider Orthopaedic Surgery; Visit Provider Orthopaedic Surgery
DX: S39.012A Strain of muscle, fascia and tendon of lower back, initial encounter (principal); M48.07 Spinal stenosis, lumbosacral region; Z98.890 Other specified postprocedural states; X58.XXXA Exposure to other specified factors, initial encounter
CPT/HCPCS: 72158; A9579

== ENCOUNTER → 2020-06-30 16:04 | Outpatient (CLI) | payer OTHER, SELFPAY ==
[2018-01-05 14:59] VITALS: BMI 26.5
--- NOTE | 2020-06-30 16:05 | DI.MRI.S_ITS ---
PROCEDURE: MR CERVICAL SPINE WO CON INDICATIONS: Radiculopathy, cervical region TECHNIQUE: Noncontrast sagittal T1 spin echo and T2 fast spin echo, sagittal STIR, foraminal oblique sagittal T2 fast spin echo, and axial gradient echo or T2 fast spin echo through the cervical spine. COMPARISON: None. FINDINGS: Image quality: Excellent. Alignment and Curvature: There is straightening and slight reversal of normal cervical curvature with apex at C5. There is grade 1 retrolisthesis of C5 on C6 measuring 3 mm. Bone Marrow: Marrow demonstrates normal overall signal. Spinal Cord: Visualized spinal cord has normal size and signal. No cerebellar tonsillar herniation. Paraspinous Soft Tissues: No paravertebral masses. Prevertebral soft tissues are normal in thickness. Discs: Moderate desiccation is present at C5-6, minimal throughout the remainder of the cervical spine. C2-C3: No disc bulge or spinal stenosis. Minimal left foraminal narrowing. C3-C4: Mild disc bulge with minimal effacement of the anterior thecal sac. Mild left and minimal right foraminal narrowing. C4-C5: Mild disc bulge with mild spinal stenosis. Minimal left foraminal narrowing. C5-C6: Mild disc bulge with moderate spinal stenosis. Moderate left and moderate to severe right foraminal narrowing. Uncovertebral hypertrophy is present. C6-C7: Mild disc bulge without spinal stenosis. Minimal bilateral foraminal narrowing. C7-T1: No disc bulge, spinal stenosis or foraminal narrowing. IMPRESSION: 1. Mild reversal cervical curvature at C5-6 demonstrating moderate spinal stenosis at this level. In addition, there is moderate to severe bilateral foraminal narrowing present at this level. Dictated by: Keily Guzman M.D. on 07/01/2020 at 10:52 Approved by: Keily Guzman M.D. on 07/01/2020 at 11:03
== END ==
PROVIDERS: PCP Family Medicine; Referring Provider Family Medicine; Visit Provider Family Medicine
DX: M54.12 Radiculopathy, cervical region (principal); M48.02 Spinal stenosis, cervical region
CPT/HCPCS: 72141